=== PATIENT | female | born 1960 | race African-American/Black ===

== ENCOUNTER 2016-05-21 09:41 | Emergency (ER) | payer OTHER ==
[~2016-05-21] VITALS: Ht 154.9 cm; Wt 73.6 kg
[2016-05-21] MEDS ORDERED: LORA1TAB3 PO (09:49)
[2016-05-21] MEDS ORDERED: OXYB5 PO (09:49)
[2016-05-21] MEDS ORDERED: LEVO88TA4 PO (09:49)
[2016-05-21] MEDS ORDERED: LURA40 PO (09:49)
[2016-05-21] MEDS: HYDROCODONE/ACETAMINOPHEN 10-325 MG TABLET PO ONE ×2 (11:20→11:39)
[2016-05-21 11:41] VITALS: BP 122/65
== END 2016-05-21 12:18 | disposition home or self-care (01) ==
LOC: EMS 09:42
DX: S43.402A Unspecified sprain of left shoulder joint, initial encounter (principal); S83.92XA Sprain of unspecified site of left knee, initial encounter; W10.8XXA Fall (on) (from) other stairs and steps, initial encounter; Y93.01 Activity, walking, marching and hiking; Y92.89 Other specified places as the place of occurrence of the external cause; Y99.8 Other external cause status
CPT/HCPCS: 29105; 99284

== ENCOUNTER 2017-05-18 19:54 | Emergency (ER) | payer MEDICARE, OTHER ==
[~2017-05-18] VITALS: Ht 154.9 cm; Wt 68.2 kg
[~2017-05-18 19:54] MED LIST: LEVO88TA4 PO; LORA1TAB3 PO; LURA40 PO; OXYB5 PO
[2017-05-18 20:25] VITALS: BP 113/71
== END 2017-05-18 21:14 | disposition home or self-care (01) ==
LOC: EMS 19:56
DX: S09.90XA Unspecified injury of head, initial encounter (principal); S40.212A Abrasion of left shoulder, initial encounter; M25.532 Pain in left wrist; M19.90 Unspecified osteoarthritis, unspecified site; F31.9 Bipolar disorder, unspecified; W01.198A Fall on same level from slipping, tripping and stumbling with subsequent striking against other object, initial encounter; Y93.89 Activity, other specified; Y92.89 Other specified places as the place of occurrence of the external cause; Y99.8 Other external cause status
CPT/HCPCS: 99281